=== PATIENT | female | born 1970 | race Asian ===

== ENCOUNTER 2018-11-03 18:15 | Emergency (ER) | payer OTHER ==
[~2018-11-03] VITALS: Ht 160 cm; Wt 79.4 kg
[2018-11-03 21:25] VITALS: BP 173/98; TEMP 98.2
== END 2018-11-03 21:32 | disposition home or self-care (01) ==
LOC: ED 18:15
DX: J40 Bronchitis, not specified as acute or chronic (principal); J02.9 Acute pharyngitis, unspecified; I10 Essential (primary) hypertension
CPT/HCPCS: 87502; 87651; 99283

== ENCOUNTER 2019-10-07 19:36 | Emergency (ER) | payer OTHER ==
[~2019-10-07] VITALS: Ht 160 cm; Wt 89.4 kg
[2019-10-07 21:01] VITALS: BP 138/80; TEMP 98.1
== END 2019-10-07 21:01 | disposition home or self-care (01) ==
LOC: ED 19:36
DX: S16.1XXA Strain of muscle, fascia and tendon at neck level, initial encounter (principal); S39.012A Strain of muscle, fascia and tendon of lower back, initial encounter; V89.2XXA Person injured in unspecified motor-vehicle accident, traffic, initial encounter
CPT/HCPCS: 99283